=== PATIENT | female | born 1970 | race American Indian/Alaskan Native ===

== ENCOUNTER 2018-03-18 09:03 | Day surgery (SDC) | payer MEDICAID ==
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
[2018-03-18 09:54] LABS: BASO # 0.1 K/uL (0.0-0.2); BASO % 0.8 % (0.0-2.0); EOS # 0.2 K/uL (0.0-0.7); EOS % 2.4 % (0.0-4.0); HEMOGLOBIN 12.5 g/dL (11.0-16.0); LYMPH # 2.4 K/uL (1.0-4.3); LYMPH % 35.9 % (20.0-40.0); MEAN CELL VOLUME 86.2 fL (81.0-99.0); MEAN CORPUSCULAR HEMOGLOBIN 28.6 pg (27.0-31.0); MEAN CORPUSCULAR HGB CONC 33.2 g/dL (33.0-37.0); MEAN PLATELET VOLUME 9.5 fL (7.2-11.7); MONO # 0.4 K/uL (0.0-0.8); MONO % 6.5 % (0.0-10.0); NEUT # 3.7 K/uL (1.8-7.0); NEUT % 54.4 % (50.0-75.0); NRBC % 0.1 % (0.0-2.0); RBC 4.36 Mil/uL (3.80-5.20); RED CELL DISTRIBUTION WIDTH 14.6 % (11.5-14.5); WHITE BLOOD COUNT 6.8 K/uL (4.8-10.8)
[2018-03-18 10:10] LABS: ALB/GLOB RATIO 1.2 (1.0-2.1); CALCIUM 8.8 mg/dl (8.6-10.4); GFR AFRICAN-AMERICAN > 60; GFR NON-AFRICAN AMERICAN > 60
[2018-03-18 10:13] LABS: ALT/SGPT 25 U/L (9-52); AST/SGOT 25 U/L (14-36); BLOOD UREA NITROGEN 8 mg/dL (7-17)
[2018-03-18 10:18] LABS: INR 1.1; PROTHROMBIN TIME 11.5 SECONDS (9.7-12.2)
[2018-03-18] MEDS ORDERED: Lactated Ringer's 1,000 ML IV SCH (10:30)
[2018-03-18] MEDS ORDERED: Propofol 10 mg/ml Inj (20 ML) ONE ×3 (10:42→11:43)
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
[2018-03-18] MEDS ORDERED: Bupivacaine 0.25% 20 ML INJ IJ ONE (11:13)
[2018-03-18] MEDS ORDERED: Lidocaine/Epinephrine 1% 1:100000 10 ML IJ ONE (11:14)
[2018-03-18] MEDS ORDERED: ceFAZolin IV 2 gm in Dextrose 2 GM/50 ML BAG IVPB ONE (11:14)
[2018-03-18] MEDS ORDERED: Midazolam 2 MG/2 ML VIAL ONE (11:16)
[2018-03-18] MEDS ORDERED: Lactated Ringer's 1,000 ML IV ONE (12:02)
--- NOTE | 2018-03-18 12:09 | PCM.SURG1 ---
Surgeon's Initial Post Op Note - Surgeon's Notes Surgeon: Dr. Gardiner [employer] Operator [employer]: Mercedes Beck, PGY1, Norris Rodríguez, MS3 Type of Anesthesia: General LMA Pre-Operative Diagnosis: Left lower extremity infected hematoma Operative Findings: see operative report Post-Operative Diagnosis: same Operation Performed: Left lower extremity I&D Specimen/Specimens Removed: wound culture Estimated Blood Loss: EBL {In ML}: 10 Blood Products Given: N/A Drains Used: No Drains Post-Op Condition: Fair Date of Surgery/Procedure: 03/18/18 Time of Surgery/Procedure: 11:00
[2018-03-18 13:44] VITALS: O2SAT 100
[2018-03-18 14:59] VITALS: BP 129/65; PULSE 74; RESP 20; TEMP 97.8
--- NOTE | 2018-03-19 00:01 | OP ---
Copied To: Kevin Gardiner MD Attending MD: Kevin Gardiner MD PROCEDURE DATE: 03/18/2018 PREOPERATIVE DIAGNOSES: 1. Left leg infected hematoma. 2. Left leg skin necrosis. 3. Morbid obesity. POSTOPERATIVE DIAGNOSES: 1. Left leg infected hematoma. 2. Left leg skin necrosis. 3. Morbid obesity. PROCEDURES DONE: 1. Incision and drainage of left thigh hematoma. 2. Excisional debridement of the wound, 5 x 4 x 2 cm size. 3. Excision of the redundant infected skin approximately 5 x 5 x 4 cm size. SURGEON: Kevin Gardiner MD PHARMACY SPECIALIST: . ANESTHESIA: General anesthesia with LMA. ESTIMATED BLOOD LOSS: Around 20 mL. DRAINS: None. PATHOLOGY: 1. Pus was sent for culture and sensitivity. 2. The debrided wound tissue as well as infected skin was sent for the pathology. COMPLICATIONS: None. INTRAOPERATIVE FINDINGS: The patient had approximately a 5 x 4 cm infected hematoma with overlying infected skin with necrotic tissue in the wound bed. DESCRIPTION OF PROCEDURE: On intraoperative steps, this 47-year-old female was diagnosed with left leg infected hematoma, with necrosis of the skin, and the patient was consented for the incision and drainage as well as debridement, brought to the OR, placed supine on operating table. After induction of anesthesia, the left posterior leg was prepped and draped in usual sterile fashion and the curvilinear incision was made surrounding the infected skin and abscess cavity was entered and the culture was taken, and the patient found to have very thin as well as thick liquid infected hematoma and after that, overlying necrotic skin was completely excised. Underlying wound was also debrided with blunt and sharp dissection using scissors as well as cautery and Bovie and after that, the infected wound edges were also refashioned and the specimen was sent off the table for the pathology. Hemostasis was achieved. The pulse lavage was done for the wound and after that, the wound was packed with iodoform packing. Dry sterile dressing was applied. The patient tolerated procedure well. Count of instrument was correct. There was no apparent complication. The patient was reversed from anesthesia, sent to the postanesthesia care unit in stable condition. Kevin Gardiner MD [facility] # [id number]
== END 2018-03-18 17:25 | disposition home or self-care (01) ==
LOC: C.ER 09:03 → UNDOADMOB 09:32 → C.9E 09:32 → C.6T 12:58 → C.9E 12:58 → C.9S 13:38 → C.6T 13:38 → C.SDS 13:45
PROVIDERS: ATTEND Surgery Surgical Critical Care
DX: S70.12XA Contusion of left thigh, initial encounter (principal); I96 Gangrene, not elsewhere classified; E66.01 Morbid (severe) obesity due to excess calories
CPT/HCPCS: 10060; 71046; 80053; 85025; 85610; 85730; 87070; 88304; 99285; J0690; J2001; J2704; J3010; J7120